=== PATIENT | female | born 1975 | race Hispanic/Latino ===

== ENCOUNTER 2017-05-15 07:11 | Emergency (ER) | payer BC ==
[2017-05-15] MEDS ORDERED: Acetaminophen 500 MG TAB ONE (07:30)
--- NOTE | 2017-05-15 08:10 | RAD ---
CHEST TWO VIEWS: History: Cough. Congestion. Dyspnea. FINDINGS: No comparison. Cardiac silhouette and pulmonary vasculature are unremarkable. Mediastinum is midline. There is no confluent airspace consolidation, pneumothorax, or pleural fluid evident. IMPRESSION: No active cardiopulmonary abnormalities are demonstrated. POS: [facility]
== END 2017-05-15 08:40 | disposition home or self-care (01) ==
LOC: SCSER 07:11
DX: B34.9 Viral infection, unspecified (principal); E03.9 Hypothyroidism, unspecified; Z79.899 Other long term (current) drug therapy
CPT/HCPCS: 71046; 87081; 87430; 87804

== ENCOUNTER 2018-06-12 12:59 | Outpatient (CLI) | payer BC | END 2018-06-12 13:00 | disposition home or self-care (01) | LOC: BICMAMMO 12:59 | PROVIDERS: ATTEND Obstetrics & Gynecology | DX: Z12.31 Encounter for screening mammogram for malignant neoplasm of breast (principal) | CPT/HCPCS: 77063; 77067 ==

== ENCOUNTER 2018-06-12 13:27 | Outpatient (CLI) | payer BC ==
--- NOTE | 2018-06-12 14:10 | ULT ---
THYROID ULTRASOUND: Date: 06/12/18 HISTORY: Follow-up thyroid nodule. COMPARISON: 05/04/15 study. FINDINGS: Real-time imaging of the thyroid gland was performed. The right lobe has been removed. The left lobe measures 1.4 x 1.4 x 3.7 cm. It is very heterogeneous. I do not see a definite discrete nodule. A nod ule was described on the prior examination, but I do not definitely appreciate this on the current st udy. IMPRESSION: 1. Postop right thyroid lobectomy change. 2. Heterogeneous left lobe without definite discrete nodule. POS: [facility]
== END 2018-06-12 13:28 | disposition home or self-care (01) ==
LOC: BICULT 13:27
PROVIDERS: ATTEND Internal Medicine Endocrinology, Diabetes & Metabolism
DX: E04.2 Nontoxic multinodular goiter (principal); E03.9 Hypothyroidism, unspecified; Z90.89 Acquired absence of other organs
CPT/HCPCS: 76536